=== PATIENT | male | born 1995 | race Caucasian/White ===

== ENCOUNTER 2020-06-12 17:19 | Outpatient (CLI) | payer OTHER, SELFPAY ==
--- NOTE | 2020-06-12 17:25 | XRR_ITS ---
PROCEDURE INFORMATION: Exam: XR Chest, 2 Views Exam date and time: 06/12/2020 5:25 PM Age: 24 years old Clinical indication: Cough; Additional info: R05 - cough TECHNIQUE: Imaging protocol: XR of the chest Views: 2 views. COMPARISON: No relevant prior studies available. FINDINGS: Lungs: Unremarkable. No consolidation. Pleural spaces: Unremarkable. No pleural effusion. No pneumothorax. Heart/Mediastinum: Unremarkable. No cardiomegaly. Bones/joints: Unremarkable. XR/XR chest 2V* [id number] IMPRESSION: No acute findings.
== END 2020-06-12 17:20 | disposition home or self-care (01) ==
LOC: RAD 17:22
PROVIDERS: Visit Provider Nurse Practitioner Family
DX: R05 Cough (principal)
CPT/HCPCS: 71046